=== PATIENT | male | born 1965 | race Caucasian/White ===

== ENCOUNTER → 2023-06-14 08:54 | Outpatient (CLI) | payer OTHER, SELFPAY ==
--- NOTE | 2023-06-14 08:57 | DI.ECHO.S_ITS ---
[place] +---------+ [facility] +---------+ : : [address] : [address] : : : : [id number] : : : : Phone: [phone]---------+ Echocardiogram Report + + :Name: MEREDITH CABRALES Study Date: 06/14/2023 Height: 70 in : :[facility] ReadingLocation: Weight: 200 lb : : Gender: Male BSA: 2.1 m2 : :: 1965 Age: 57 yrs BP: 145/90 mmHg: :Reason For Study: VENTRICULAR PREMATURE DEPOLARIZATION : :Ordering Physician: WILTON, : :GRACY Performed By: Andrew Baker : :Referring: GRACY NÚÑEZ : + + Interpretation Summary 1) Normal left ventricular thickness and size with low normal systolic function (EF 50-55%). 2) Normal right ventricular size and function. 3) No significant valvular abnormalities. 4) The ascending aorta is mildly enlarged at 4.0cm. 5) No prior Echo available for comparison. Procedure: A two-dimensional transthoracic echocardiogram with color flow and Doppler was performed. The study quality was technically adequate. There is no prior echocardiogram noted for this patient. The patient was in normal sinus rhythm during the exam. The heart rate ranged between 60-73 bpm during the study. Left Ventricle: The left ventricle is normal in size and wall thickness. The ejection fraction is estimated to be 50-55%. There are no focal wall motion abnormalities. Right Ventricle: The right ventricle is normal in size and function. Atria: The left atrium is moderately dilated. Right atrial size is normal. The interatrial septum grossly appears intact with no obvious evidence for an atrial septal defect. Mitral Valve: The mitral valve is normal in structure and function. There is no mitral valve stenosis. There is mild mitral regurgitation. Aortic Valve: The aortic valve is trileaflet. There is no aortic valve stenosis. No aortic regurgitation is present. Tricuspid Valve: The tricuspid valve is normal in structure and function. There is no tricuspid stenosis. There is trace tricuspid regurgitation. The right ventricular systolic pressure is estimated to be at least 27 mmHg based on an estimated right atrial pressure of 8 mm Hg. Pulmonic Valve: The pulmonic valve is not well visualized. There is no pulmonic valvular stenosis. There is a trace or physiologic amount of pulmonic regurgitation. Great Vessels: The aortic root is mildly dilated. The ascending aorta is mildly enlarged. The IVC is dilated (diameter is greater than 2.1 cm) yet it collapses greater than 50% with a sniff. This suggests a right atrial pressure of 8 mm Hg. Pericardium/ Pleura There is no pericardial effusion. There is no pleural effusion. MMode/2D Measurements & Calculations LVIDd: 4.5 cm LVOT diam: 2.5 cm LVIDs: 3.3 cm Ao root diam: 3.9 cm FS: 25.7 % asc Aorta Diam: 4.0 cm IVSd: 0.99 cm Ao Arch Diam (Prox Trans): 3.3 cm LVPWd: 0.95 cm LV henley. diameter/BSA (cm/m^2): 2.1 LV sys. diameter/BSA (cm/m^2): 1.6 LA A2 area: 27.2 cm2 RA long axis: 4.6 cm LA A4 area: 25.1 cm2 RA area: 14.2 cm2 LA length (vol): 5.8 cm RA vol: 37.1 ml LA vol: 100.0 ml RA : 17.8 ml/m2 LA vol index: 47.9 ml/m2 IVC diam: 2.2 cm RVD1 (basal): 3.4 cm RVD2 (mid): 2.9 cm TAPSE: 2.8 cm Doppler Measurements & Calculations Ao V2 max: 114.5 cm/sec LVOT Max Konrad: 89.5 cm/sec Ao V2 mean: 86.9 cm/sec LV V1 max P.2 mmHg Ao max P.2 mmHg LV V1 VTI: 20.9 cm Ao mean P.3 mmHg BUSHRA(I,D): 4.3 cm2 Ao V2 VTI: 24.8 cm BUSHRA(V,D): 4.0 cm2 sev ratio: 0.84 BUSHRA indexed to BSA (cm^2/m^2): 2.1 MV E max konrad: 71.2 cm/sec TR max konrad: 221.9 cm/sec MV A max konrad: 65.9 cm/sec TR max P.7 mmHg MV E/A: 1.1 PA V2 max: 91.6 cm/sec Med Peak E' Konrad: 7.6 cm/sec PA V2 mean: 64.4 cm/sec E/E' med: 9.3 PA mean P.8 mmHg Lat Peak E' Konrad: 7.3 cm/sec PA pr(Accel): 31.0 mmHg E/E' lat: 9.8 E/e' average: 9.6 MV dec time: 0.22 sec SV(LVOT): 106.3 ml Reading Physician:12:42 PM
== END ==
PROVIDERS: PCP Registered Nurse; Referring Provider Registered Nurse; Visit Provider Registered Nurse
DX: I49.3 Ventricular premature depolarization (principal); I34.0 Nonrheumatic mitral (valve) insufficiency; I77.810 Thoracic aortic ectasia; I77.89 Other specified disorders of arteries and arterioles
CPT/HCPCS: 93306